=== PATIENT | female | born 1965 | race Two or more races ===

== ENCOUNTER 2022-07-06 07:38 | Outpatient (CLI) | payer OTHER | END 2022-07-06 07:39 | disposition home or self-care (01) | LOC: LAB 07:38 | DX: I11.9 Hypertensive heart disease without heart failure (principal); B17.10 Acute hepatitis C without hepatic coma; E11.69 Type 2 diabetes mellitus with other specified complication; E03.9 Hypothyroidism, unspecified; E78.2 Mixed hyperlipidemia; K50.811 Crohn's disease of both small and large intestine with rectal bleeding; E55.9 Vitamin D deficiency, unspecified ==

== ENCOUNTER 2022-09-09 13:05 | Emergency (ER) | payer OTHER ==
[~2022-09-09] VITALS: Ht 162.6 cm; Wt 86.2 kg
[2022-09-09] MEDS ORDERED: LOSARTAN POTASS50 MG PO (13:38)
== END 2022-09-09 16:16 | disposition home or self-care (01) ==
LOC: ER 13:05
DX: M54.59 Other low back pain (principal); Z88.6 Allergy status to analgesic agent

== ENCOUNTER 2022-09-10 13:37 | Outpatient (CLI) | payer OTHER ==
[~2022-09-10 13:37] MED LIST: LOSARTAN POTASS50 MG PO
== END 2022-09-10 13:42 | disposition home or self-care (01) ==
LOC: MAMO-SONO 13:37
DX: N60.11 Diffuse cystic mastopathy of right breast (principal); N60.12 Diffuse cystic mastopathy of left breast